=== PATIENT | female | born 1995 | race Caucasian/White ===

== ENCOUNTER 2018-07-03 00:32 | Emergency (ER) | payer OTHER ==
[~2018-07-03] VITALS: Ht 157.5 cm; Wt 53.5 kg
[2018-07-03 00:45] VITALS: Ht 157.5 cm; Wt 53.5 kg
[2018-07-03 02:19] VITALS: BP 120/74
== END 2018-07-03 02:58 | disposition left against medical advice (07) ==
LOC: ED 00:32
DX: Z53.21 Procedure and treatment not carried out due to patient leaving prior to being seen by health care provider (principal)